=== PATIENT | female | born 1990 | race Caucasian/White ===

== ENCOUNTER 2021-03-19 21:21 | Emergency (ER) | payer MEDICAID, OTHER ==
[~2021-03-19] VITALS: Ht 165.1 cm; Wt 46.3 kg
[2021-03-19 21:32] VITALS: BP 130/80
== END 2021-03-19 23:59 | disposition home or self-care (01) ==
LOC: ER 21:22
DX: R07.81 Pleurodynia (principal); M79.18 Myalgia, other site; R91.1 Solitary pulmonary nodule; F41.9 Anxiety disorder, unspecified; Z87.442 Personal history of urinary calculi
CPT/HCPCS: 71101